=== PATIENT | male | born 1950 | race Caucasian/White ===

== ENCOUNTER 2020-07-12 20:27 | Observation (INO) ==
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
[2020-07-12] MEDS ORDERED: NORMAL SALINE 1,000 ML IV ONE (20:47)
[2020-07-12] MEDS ORDERED: METOPROLOL TARTRATE 1 MG/ML AMPUL IV ONE ×2 (20:47→21:35)
[2020-07-12 21:00] LABS: Hematocrit 46.9 % (42.0-52.0); Hemoglobin 15.9 gm/dL (13.5-18.0); Mean Cell Volume 88.2 fl (78-100); Mean Corpuscular Hemoglobin 29.9 pg (27-31); Mean Corpuscular Hgb Conc 33.9 g/dl (32-36); Mean Platelet Volume 8.8 fl (8-11.3); Neutrophil # 4.1 K/mm3 (1.3-6.0); Neutrophil % 63.4 % (42-75.0); Platelet Count 246 K/mm3 (150-450); Red Blood Count 5.32 M/mm3 (4.7-6.0); Red Cell Distribution Width 13.1 % (11.5-14.0); White Blood Count 6.5 K/mm3 (4.0-10.5)
[2020-07-12 21:21] LABS: ALT 42 U/L (19-67); AST 20 U/L (0-48); Albumin * 3.9 gm/dl (3.4-5.0); Alkaline Phosphatase * 78 U/L (50-170); Anion Gap 9.7 mmol/L (6.8-13.8); BNP * 1332 pg/mL (5-350); BUN/Creatinine Ratio 13.2 (9.0-21.6); Bilirubin, Total 1.3 mg/dL (0.0-1.1); Blood Urea Nitrogen 16 mg/dL (6-23); Ca. Corrected For Albumin 8.3 mg/dL (8.4-10.2); Calcium * 8.5 mg/dL (7.9-10.9); Chloride 107 mmol/L (97-106); Glucose * 73 mg/dL (70-110); Potassium 3.7 mmol/L (3.4-4.6); Sodium 142 mmol/L (132-142); Total Protein 6.8 gm/dL (6.2-8.2)
[2020-07-12 21:23] LABS: Troponin I Less than 0.017 ng/mL (0.00-0.10)
[2020-07-12] MEDS ORDERED: FUROSEMIDE 10 MG/ML VIAL IV ONE (21:34)
[2020-07-12] MEDS ORDERED: DILTIAZEM HCL 5 MG/ML VIAL IV ONE (22:26)
[2020-07-12] MEDS ORDERED: NORMAL SALINE 200 ML IV ONE (23:07)
[2020-07-12] MEDS: DILTIAZEM HCL 125 MG in DEXTROSE 5 % IN WATER 100 ML IV PRN ×2 (23:11)
[2020-07-12] MEDS ORDERED: NORMAL SALINE 1,000 ML IV PRN (23:13)
[2020-07-13] MEDS ORDERED: ALBUTEROL SULFATE 200 PUFF INHALER IH PRN (02:26)
[2020-07-13] MEDS: METOPROLOL TARTRATE 25 MG TABLET PO SCH ×2 (07:00→08:13)
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
[2020-07-13] MEDS: APIXABAN 5 MG TABLET PO SCH ×2 (08:14→20:29)
[2020-07-13] MEDS: PROPAFENONE HCL 225 MG PO SCH ×2 (08:15→20:30)
[2020-07-13] MEDS: FLUTICASONE PROPION/SALMETEROL 14 PUFF DISK.W.DEV IH SCH ×2 (08:16→20:29)
[2020-07-13] MEDS: DILTIAZEM HCL 125 MG in DEXTROSE 5 % IN WATER 100 ML IV PRN ×2 (08:17)
[2020-07-13] MEDS ORDERED: METOPROLOL TARTRATE 25 MG TABLET PO SCH (09:00)
[2020-07-13] MEDS: DILTIAZEM HCL 60 MG TABLET PO SCH (16:56)
[2020-07-13] MEDS ORDERED: FAMOTIDINE 20 MG TABLET PO SCH (21:00)
[2020-07-14] MEDS: DILTIAZEM HCL 60 MG TABLET PO SCH ×2 (00:25→07:38)
--- NOTE | 2020-07-14 07:06 | DS ---
(1) Atrial flutter Diagnosis(s): Still in atrial flutter but rate is better. He has no symptoms. He is already on an anticoagulant. His BP is ok. He had a previous ablation, but the rhythm problem has recurred. Metoprolol didn't seem to help his rate well, so we switched to diltiazem which seems to be working. The plan is outpatient cardiology consult and echo. We will continue anticoagulant and afib/flutter medication. We will send him home on diltiazem. Problem: Acute Qualifiers: Atrial flutter type: typical Qualified Code(s): I48.3 - Typical atrial flutter (2) Chronic atrial fibrillation Problem: Chronic (3) Elevated brain natriuretic peptide (BNP) level Diagnosis(s): no symptoms. lungs clear. plan is outpatient echo and cardiology consult. Problem: Acute (4) Moderate persistent asthma Problem: Chronic Qualifiers: Asthma complication type: uncomplicated Qualified Code(s): J45.40 - Moderate persistent asthma, uncomplicated (5) Benign essential hypertension Problem: Chronic (6) Gastroesophageal reflux disease without esophagitis Problem: Chronic Date of Discharge:: 07/14/20 Hospital Course: Admitted with recurrent atrial flutter. Was asymptomatic while here. He feels fine and his exam is normal. His rate remained somewhat elevated, so we switched from a higher dose of metoprolol to diltiazem. Six 6 PM yesterday his rate is adequate. We kept him till this morning to monitor him after that medication switch. Procedures Performed: none Results and Findings: Lab Pending Results 07/12/20 20:40: WBC 6.5, RBC 5.32, Hgb 15.9, Hct 46.9, MCV 88.2, MCH 29.9, MCHC 33.9, RDW 13.1, Plt Count 246, MPV 8.8, Immature Gran % (Auto) 0.30, Immature Gran # (Auto) 0.02, Neutrophils % 63.4, Lymphocytes % 24.0, Monocytes % 9.4 H, Eosinophils % 1.5, Basophils % 1.4 H, Nucleated RBC % 0.0, Neutrophils # 4.1, Lymphocytes # 1.56, Monocytes # 0.6, Eosinophils # 0.1, Absolute Basophils 0.1 07/12/20 20:40: Sodium 142, Plasma Sodium 142, Potassium 3.7, Chloride 107 H, Carbon Dioxide 29.0, Anion Gap 9.7, BUN 16, Creatinine 1.21, Est GFR (Non-Af Amer) 63 D, BUN/Creatinine Ratio 13.2, Random Glucose 73, Calcium 8.5, Calcium Adj for Albumin 8.3 L, Total Bilirubin 1.3 H, AST 20, ALT 42, Alkaline Phosphatase 78, Troponin I Less than 0.017, B-Natriuretic Peptide 1332 H, Total Protein 6.8, Albumin 3.9 07/12/20 23:20: SARS-CoV-2 (PCR) Not detected 07/13/20 07:03: Troponin I Less than 0.017 Discharge Location: Home Disposition: Home self-care Condition: Good Discharge Activity: Activity as tolerated Discharge Diet: General/regular food Referrals: Nicolas Muñoz MD [Primary Care Provider] - Additional Patient Instructions (free text): Follow up appointment with at [facility] on July 25 at 1:00 Follow up appointment with Dr. Muñoz on July 29 at 9:30. Echocardiogram as an outpatient. Call for problems or questions. Complete Home Medications List: Complete Home Medication List: albuterol sulfate 90 mcg/actuation aerosol inhaler 2 inh IH Q4H PRN 11/29/17 multivitamin 1 tab PO DAILY 11/29/17 plant stanol fercho 450 mg tablet 450 mg PO BID tab 11/29/17 apixaban 5 mg tablet 5 mg PO BID #60 tab 12/15/18 propafenone 225 mg tablet 225 mg PO BID tab 02/24/19 chlorhexidine gluconate 0.12 % mouthwash 15 ml BC BID #1500 ml 10/21/19 fluticasone 250 mcg-salmeterol 50 mcg/dose blistr powdr for inhalation 1 inh IH BID #180 ea 12/21/19 pantoprazole 40 mg tablet,delayed release 40 mg PO BID #60 tab 12/21/19 famotidine 40 mg tablet 40 mg PO HS #30 tab 04/04/20 Diltiazem HCl [Cardizem] 60 mg PO TID #90 tab 07/14/20
[2020-07-14] MEDS: PROPAFENONE HCL 225 MG PO SCH ×2 (07:39→08:35)
[2020-07-14] MEDS: APIXABAN 5 MG TABLET PO SCH ×2 (07:40→08:35)
[2020-07-14] MEDS: FLUTICASONE PROPION/SALMETEROL 14 PUFF DISK.W.DEV IH SCH ×2 (07:40→08:35)
[2020-07-14 07:41] VITALS: BP 104/60
== END 2020-07-14 08:54 | disposition home or self-care (01) ==
LOC: MS 20:27 → ER 20:27 → MS 07-13 00:40
PROVIDERS: ADMIT Family Medicine; ATTEND Allergy & Immunology